=== PATIENT | male | born 1960 | race Caucasian/White ===

== ENCOUNTER 2019-05-16 17:44 | Emergency (ER) | payer BC ==
[~2019-05-16] VITALS: Ht 185.4 cm; Wt 95.3 kg
[2019-05-16 17:51] VITALS: BP 197/86
--- NOTE | 2019-05-16 17:56 | NUR ---
58 Y/O M BIB AMBULANCE WITH C/O DIZINESS X1 DAY. PT WENT TO [facility], [place], PT CAME TO [facility]. PT STATES HE TOOK 2 DIET PILLS YESTERDAY AND WOKE UP FEELING VERY DIZZY. PT DENIES N/V/F OR RECENT ILLNESS. PT PUT ON MONITOR, VS STABLE. [facility] MEDHX: [place], STROKE
[2019-05-16 18:52] LABS: BASOPHILS % (AUTO) 0.6 % (0.0-2.0); EOSINOPHILS # (AUTO) 0.2 K/uL (0-0.4); EOSINOPHILS % (AUTO) 2.3 % (0.0-4.0); HEMATOCRIT 47.2 % (36-52); HEMOGLOBIN 15.8 g/dL (12.0-18.0); LYMPHOCYTES # (AUTO) 1.5 K/uL (2.0-11.5); LYMPHOCYTES % (AUTO) 22.8 % (20.5-51.1); MEAN CORPUSCULAR HEMOGLOBIN 33 pg (27-31); MEAN CORPUSCULAR HGB CONC 33 g/dL (33-37); MONOCYTES # (AUTO) 0.5 K/uL (0.8-1.0); MONOCYTES % (AUTO) 6.7 % (1.7-9.3); NEUTROPHILS # (AUTO) 4.6 K/uL (1.8-7.7); NEUTROPHILS % (AUTO) 67.6 % (42.2-75.2); PLATELET COUNT (AUTO) 267 K/uL (140-450); RED BLOOD CELL COUNT(AUTO) 4.77 MIL/uL (4.20-6.10); RED CELL DISTRIBUTION WIDTH 13.7 % (11.6-13.7); WHITE BLOOD COUNT (AUTO) 6.8 K/uL (4.8-10.8)
[2019-05-16 19:07] LABS: ALBUMIN 3.7 g/dL (3.4-5.0); ANION GAP 11.4 (8-16); CARBON DIOXIDE 30.1 mmol/L (21-32); CREATININE 0.9 mg/dL (0.7-1.3); POTASSIUM 4.5 mmol/L (3.5-5.1); TOTAL BILIRUBIN 0.4 mg/dL (0.0-1.0)
--- NOTE | 2019-05-16 19:16 | NUR ---
PT RESTING COMFORTABLY, STATES HE FEELS DIZZY WHEN HE SITS UP, NOT WHEN LYING DOWN. PT STATES HE HAD MILD STROKE X4 YEARS AGO, AND A VA WHEN HE WS 31. PT IS NOT IN PAIN AT THIS TIME. STARR
[2019-05-16] MEDS ORDERED: NACL 0.9% 1,000 ML IV ONE (19:30)
--- NOTE | 2019-05-16 21:08 | NUR ---
PT LEFT FOR CT BY WHEELCHAIR.
--- NOTE | 2019-05-16 21:24 | NUR ---
PT RETURNED FROM CT BY WHEELCHAIR.
[2019-05-16 21:55] VITALS: BP 148/91
--- NOTE | 2019-05-16 21:56 | NUR ---
Patient discharged with v/s stable. Written and verbal after care instructions given and explained. Patient verbalized understanding. Ambulatory with steady gait. All questions addressed prior to discharge. Advised to follow up with PMD.
--- NOTE | 2019-05-17 08:50 | NUR ---
Late entry. Confirmed with RN that 0.9 NS IV completed at 2044
== END 2019-05-16 21:55 | disposition home or self-care (01) ==
LOC: MED 17:44
DX: R42 Dizziness and giddiness (principal); R11.0 Nausea; I25.2 Old myocardial infarction; Z98.62 Peripheral vascular angioplasty status
CPT/HCPCS: 36415; 70450; 80053; 84484; 85025; 93005; 96360; 99284; J7030